=== PATIENT | male | born 2000 | race American Indian/Alaskan Native ===

== ENCOUNTER 2024-08-25 22:16 | Emergency (ER) | payer OTHER ==
[~2024-08-25] VITALS: Ht 182.9 cm; Wt 92.3 kg
[2024-08-25] MEDS ORDERED: Ketorolac 15 MG/ML VIAL IM ONE (22:45)
[2024-08-25] MEDS ORDERED: NS 1,000 ML IV ONE (23:30)
[2024-08-25] MEDS ORDERED: Albuterol 90 MCG/PUFF 8 GM MDI IH ONE (23:30)
[2024-08-25] MEDS ORDERED: cefTRIAXone 2 G in Water For Injection,Sterile 20 ML IV ONE (23:45)
[2024-08-25 23:54] LABS: BASO % 0.3 % (0.0-2.0); EOS # 0.1 K/mm3 (0.0-0.7); GRAN # 4.1 K/mm3 (1.4-6.5); GRAN % 67.1 % (42.2-75.2); HEMATOCRIT 44.4 % (42.0-52.0); HEMOGLOBIN 14.6 g/dl (13.5-18.0); LYMPH # 1.2 K/mm3 (1.2-3.4); LYMPH % 18.8 % (20.0-51.0); MEAN CELL VOLUME 89 fl (80.0-100.0); MEAN CORPUSCULAR HEMOGLOBIN 29 pg (27-31); MEAN CORPUSCULAR HGB CONC 33 g/dl (33.0-37.0); MEAN PLATELET VOLUME 10.5 fl (7.4-10.4); MONO # 0.8 K/mm3 (0.1-0.6); MONO % 12.6 % (1.7-9.3); PLATELET COUNT 183 K/mm3 (130-400); RED BLOOD COUNT 4.98 M/mm3 (4.20-5.60); REDCELL DISTRIBUTION WIDTH-CV 12.2 % (11.5-14.5)
[2024-08-26 00:13] LABS: ALBUMIN 2.8 g/dL (3.5-5.0); BILIRUBIN,TOTAL 0.5 mg/dL (0.2-1.2); CALCIUM 8.9 mg/dL (8.4-10.2); CREATININE, serum 0.99 mg/dL (0.72-1.25); POTASSIUM 3.4 mEq/L (3.5-4.5)
[2024-08-26] MEDS ORDERED: ZITHROMAX Z PA250 MG PO (00:25)
[2024-08-26] MEDS ORDERED: TESSALON P100 MG/CAP PO (00:30)
[2024-08-26] MEDS ORDERED: Benzonatate 100 MG CAP PO ONE (00:30)
[2024-08-26 00:36] VITALS: BP 123/79; PULSE 89; TEMP 99
== END 2024-08-26 00:45 | disposition home or self-care (01) ==
LOC: COL.ER 22:16
PROVIDERS: Emergency Medicine
DX: J18.9 Pneumonia, unspecified organism (principal); E87.6 Hypokalemia
CPT/HCPCS: J0696; J1885; J7030